=== PATIENT | male | born 1990 | race Caucasian/White ===

== ENCOUNTER 2017-11-17 12:46 | Inpatient (IN) | payer SELFPAY ==
[~2017-11-17] VITALS: Ht 193 cm; Wt 76.7 kg
[2017-11-17 13:46] LABS: Basophils # (auto) 0 uL; Basophils % (auto) 0.7 % (0.0-2.0); Eosinophils # (auto) 0.2 uL; Hematocrit 46.4 % (41.0-53.0); Hemoglobin 15.8 g/dL (13.5-17.5); Lymphocytes # (auto) 1.8 uL; Lymphocytes % (auto) 28.5 % (10.0-50.0); Mean Corpuscular Hemoglobin 32.6 pg (28.0-32.0); Monocytes # (auto) 0.8 uL; Monocytes % (auto) 12.5 % (0.0-12.0); Neutrophils # (auto) 3.4 uL; Neutrophils % (auto) 55.3 % (37.0-80.0); Platelet Count (auto) 224 10^3/uL (140-450); Red Blood Cells 4.83 10^6/uL (4.5-5.90); Red Cell Distribution Width 13.1 % (11.8-14.3); White Blood Cell 6.2 10^3/uL (4.4-10.8)
[2017-11-17 14:05] LABS: Albumin 4.2 g/dL (3.4-5.0); BUN/Creatinine Ratio 13.7; Bilirubin, Total 0.3 mg/dL (0.2-1.0); Calcium 9.1 mg/dL (8.5-10.1); Potassium 4.1 mmol/L (3.5-5.1); Total Protein 7.4 g/dL (6.4-8.2)
[2017-11-17] MEDS ORDERED: DOCUSATE SOD 100 MG CAP PO PRN (19:15)
[2017-11-17] MEDS ORDERED: ACETAMINOPHEN 325 MG TAB PO PRN (19:15)
[2017-11-17] MEDS ORDERED: ONDANSETRON HCL 4 MG/2 ML VIAL IV PRN (19:15)
[2017-11-17] MEDS ORDERED: TEMAZEPAM 15 MG CAP PO PRN (19:15)
[2017-11-17] MEDS ORDERED: NITROGLYCERIN 0.4 MG SL TAB SL PRN (19:15)
[2017-11-17] MEDS ORDERED: LORazepam 2MG/ML-1ML VIAL IV PRN (19:15)
[2017-11-17] MEDS ORDERED: MORPHINE SULFATE 8mg/ml INJ SDV IV PRN ×2 (19:15)
[2017-11-17] MEDS: MULTIPLE VITAMIN TAB PO SCH (19:29)
[2017-11-17] MEDS: HYDROcodone-ACET 5/325MG TAB PO PRN (20:38)
[2017-11-17 22:00] VITALS: BP 117/72
[2017-11-17] MEDS: LEVETIRACETAM 500 MG TAB PO SCH (22:16)
[2017-11-17] MEDS: SODIUM CHLOR 0.9% PF (SALINE LOCK) 10ML VIAL/SYR IV SCH (22:16)
[2017-11-18] VITALS (8 sets, daily range): BP systolic 102–118; BP diastolic 56–72
[2017-11-18] MEDS: SODIUM CHLOR 0.9% PF (SALINE LOCK) 10ML VIAL/SYR IV SCH ×3 (05:42→23:04)
[2017-11-18 07:09] LABS: Basophils # (auto) 0 uL; Basophils % (auto) 0.7 % (0.0-2.0); Eosinophils # (auto) 0.2 uL; Eosinophils % (auto) 3.6 % (0.0-7.0); Hematocrit 43.4 % (41.0-53.0); Hemoglobin 14.8 g/dL (13.5-17.5); Lymphocytes # (auto) 1.8 uL; Lymphocytes % (auto) 32.7 % (10.0-50.0); Mean Corpuscular Volume 97.1 fL (80.0-100.0); Monocytes # (auto) 0.7 uL; Monocytes % (auto) 12.2 % (0.0-12.0); Neutrophils # (auto) 2.8 uL; Neutrophils % (auto) 50.8 % (37.0-80.0); Nucleated Red Blood Cells % 0.1 %; Platelet Count (auto) 197 10^3/uL (140-450); Red Blood Cells 4.47 10^6/uL (4.5-5.90); Red Cell Distribution Width 13.2 % (11.8-14.3); White Blood Cell 5.6 10^3/uL (4.4-10.8)
[2017-11-18 07:48] LABS: Albumin 3.5 g/dL (3.4-5.0); BUN/Creatinine Ratio 15.3; Bilirubin, Total 0.5 mg/dL (0.2-1.0); Calcium 8.7 mg/dL (8.5-10.1); Total Protein 6.3 g/dL (6.4-8.2)
[2017-11-18] MEDS: MULTIPLE VITAMIN TAB PO SCH (09:38)
[2017-11-18] MEDS: LEVETIRACETAM 500 MG TAB PO SCH ×2 (09:38→21:34)
[2017-11-18] MEDS: HYDROcodone-ACET 5/325MG TAB PO PRN (21:33)
[2017-11-19 05:00] VITALS: BP 95/46
[2017-11-19 08:02] VITALS: BP 84/45
[2017-11-19] MEDS: LEVETIRACETAM 500 MG TAB PO SCH ×2 (10:13→22:24)
[2017-11-19] MEDS: MULTIPLE VITAMIN TAB PO SCH (10:13)
[2017-11-19 10:24] LABS: Urine WBC None Seen /hpf (0 - 3)
[2017-11-19 10:47] LABS: Urine Bacteria NONE SEEN /hpf (None Seen); Urine Blood Negative /uL (Negative); Urine Specific Gravity 1.023 (1.001-1.035)
[2017-11-19 13:00] VITALS: BP 108/54
[2017-11-19] MEDS: SODIUM CHLOR 0.9% PF (SALINE LOCK) 10ML VIAL/SYR IV SCH ×2 (15:17→22:24)
[2017-11-19 17:13] VITALS: BP 108/61
[2017-11-19 22:00] VITALS: BP 125/70
== END 2017-11-19 22:00 | disposition left against medical advice (07) | DRG 101 ==
LOC: ER 12:52 → TELE 12:53 → TELE-CENTR 21:45
PROVIDERS: ADMIT Internal Medicine; ATTEND Internal Medicine Pulmonary Disease
DX: G40.909 Epilepsy, unspecified, not intractable, without status epilepticus (principal); F17.210 Nicotine dependence, cigarettes, uncomplicated
CPT/HCPCS: 36415; 70450; 80053; 81001; 85025

== ENCOUNTER 2017-11-21 13:03 | Emergency (ER) | payer SELFPAY ==
[~2017-11-21] VITALS: Ht 185.4 cm; Wt 74.8 kg
[2017-11-21 13:19] VITALS: BP 130/77
[2017-11-21] MEDS ORDERED: LORazepam 0.5 MG TAB PO ONE (13:30)
[2017-11-21 14:24] LABS: Basophils # (auto) 0 uL; Basophils % (auto) 0.9 % (0.0-2.0); Eosinophils # (auto) 0.1 uL; Eosinophils % (auto) 2.6 % (0.0-7.0); Hemoglobin 15.8 g/dL (13.5-17.5); Lymphocytes # (auto) 1.3 uL; Lymphocytes % (auto) 23.4 % (10.0-50.0); Mean Corpuscular Hemoglobin 32.8 pg (28.0-32.0); Mean Corpuscular Hgb Conc. 34.3 g/dL (32.0-36.0); Mean Corpuscular Volume 95.8 fL (80.0-100.0); Monocytes # (auto) 0.6 uL; Monocytes % (auto) 11.5 % (0.0-12.0); Neutrophils # (auto) 3.5 uL; Neutrophils % (auto) 61.6 % (37.0-80.0); Nucleated Red Blood Cells % 0.1 %; Platelet Count (auto) 222 10^3/uL (140-450); Red Cell Distribution Width 13.2 % (11.8-14.3); White Blood Cell 5.7 10^3/uL (4.4-10.8)
[2017-11-21 14:43] LABS: BUN/Creatinine Ratio 16.1; Bilirubin, Total 0.4 mg/dL (0.2-1.0); Potassium 3.9 mmol/L (3.5-5.1); Total Protein 7.1 g/dL (6.4-8.2)
== END 2017-11-21 16:43 | disposition left against medical advice (07) ==
LOC: ER 13:03
DX: R56.9 Unspecified convulsions (principal); F12.10 Cannabis abuse, uncomplicated; Z53.29 Procedure and treatment not carried out because of patient's decision for other reasons
CPT/HCPCS: 36415; 80053; 85025